=== PATIENT | male | born 1960 | race Caucasian/White ===

== ENCOUNTER 2021-10-19 05:32 | Inpatient (IN) ==
--- NOTE | 2021-10-16 08:39 | Anesthesiology Consultation ---
Date of Service October 16, 2021 Assessment & Plan (1) Encounter for pre-operative examination: Chart Review Chart Review: Acceptable Risk for Surgery (pending preop Covid testing and DOS labs ) and Patient NOT seen in Pre Admission Testing -No preop labs ordered- will order CBC with diff, PPR, and coags for DOS. Per 07/05/21 anesthesia consultation- patient refuses nasal Covid testing- willing to do oral Covid swabs- pending preop Covid testing negative- will order oropharyngeal Covid Harper test for DOS as patient is requiring admission post operatively. Order placed. Will make OR and PAT chart check aware. -Pt initially scheduled 10/01/21 for surgery- rescheduled due to upper respiratory symptoms (see below)- pt is feeling better. Per nursing assessment 10/15/21, patient denies any recent travel. Pt had recent cough and sore throat (started beginning of September 2021)- treated with antibiotic and steroid (finished abx on 10/14/21). Symptoms have since resolved with exception to mild voice hoarseness- patient feels well. No known Covid positive contacts. No known Covid infection in the past 90 days. Pt is NOT vaccinated for Covid. Preop Covid testing scheduled 10/16/21= will await results. Pt seen by PCP 07/09/21= seen for preop clearance for neck surgery. Had preop labs that looked good. "He is medically cleared for proposed surgery." Follow up in six months History Surgery Operation Date: 10/18/21 10:35 Proposed Procedures p C5-C6 Anterior Cervical Discectomy and Fusion Spinal Cord Monitoring - Vernon Butler DO Height/Weight Height: 5 ft 8 in Weight: 86.183 kg Allergies Allergy/AdvReac Type Severity Reaction Status Date / Time PAIN MEDICTION Allergy Severe BLISTERS Uncoded 10/15/21 16:32 CAUSING SEPSIS Medications Home Medications Medication Instructions Recorded Confirmed Last Taken gabapentin 100 mg capsule 100 mg PO HS 07/04/21 10/15/21 Unknown meloxicam 15 mg tablet 15 mg PO HS 07/04/21 10/15/21 Unknown mv-min-vit C-ascorb 1 tab PO QAM 07/04/21 10/15/21 Unknown Qx-Lqk-Yyu-herb #124 333 mg-1.7 mg chewable tablet (Airborne (ascorbate sodium)) Past Medical History Medical History (Updated 10/16/21 @ 08:35 by Ayse Pelayo PA-C) Arthritis Endocarditis Yrs ago, d/t dental infection, s/p total teeth extraction GERD (gastroesophageal reflux disease) Diet dependent Herniated disc, cervical History of hypertension Controlled, stable per pt Hx of cardiac murmur With endocarditis, reports resolution after treatment, no murmur detected per 06/2021 PCP note in [facility] Inguinal hernia LEFT SIDE, monitoring by PCP per pt Peripheral neuropathy Past Family History Family History Mother Family history of diabetes mellitus Sister Family history of diabetes mellitus Brother Family history of diabetes mellitus Other Deep vein thrombosis Diabetes Heart disease No family history of adverse response to anesthesia Stroke Past Surgical History Surgical History History of colonoscopy History of tooth extraction Hx of inguinal hernia surgery RT Social History Smoking Status: Current every day smoker tobacco type: cigarettes Smoking cigarettes per day: 20 CIG DAILY *ADVISED Do You Dip or Chew Tobacco: No Hx Alcohol Use: Yes Alcohol type: beer alcohol intake frequency: a few times a month Hx Substance Use: No substance use type: does not use Testing Electrocardiogram Date: 07/05/21 Normal sinus rhythm, rate 67 bpm. RBBB. Chest X-Ray Date: 07/05/21 FINDINGS: No lines and tubes are seen. The cardiomediastinal silhouette is normal. Trace atelectasis at the left lung base. No evidence of pleural effusion or pneumothorax. IMPRESSION: No acute chest disease.
[~2021-10-19 05:32] MED LIST: ACETAMINOPHEN 500 MG TAB PO SCH; CeleBREX 200 MG CAP PO SCH; GABAPENTIN 600 MG DOSE PO SCH; LR 15ML/HR IV SCH; ceFAZolin 2000MG 2,000 MG/15 ML SYR IV SCH
[2021-10-19] MEDS ORDERED: PROPOFOL IV EMULSION 10 MG/ML 100 ML VIAL IV ONE (07:01)
[2021-10-19 07:06] LABS: Basophils # (auto) 0.03 K/uL (0-0.2); Basophils % (auto) 0.3 %; Eosinophils # (auto) 0.32 K/uL (0-0.5); Eosinophils % (auto) 3.4 %; Hemoglobin 14.9 g/dL (14.0-18.0); Immature Granulocytes # (auto) 0.02 K/uL (0.00-0.02); Immature Granulocytes % (auto) 0.2 %; Lymphocytes # (auto) 2.18 K/uL (1.2-3.4); Lymphocytes % (auto) 23.2 %; Mean Corpuscular Hemoglobin 31.3 pg (25-34); Mean Corpuscular Volume 90.3 fL (80-100); Mean Platelet Volume 8.5 fL (7.4-10.4); Monocytes # (auto) 0.89 K/uL (0.11-0.59); Monocytes % (auto) 9.5 %; Neutrophils # (auto) 5.95 K/uL (1.4-6.5); Neutrophils % (auto) 63.4 %; Platelet Count 277 K/uL (130-400); RDW Coefficient of Variation 12.9 % (11.5-14.5); RDW Standard Deviation 42.9 fL (36.4-46.3); Red Blood Count 4.76 M/uL (4.7-6.1); White Blood Count 9.39 K/uL (4.8-10.8)
[2021-10-19] MEDS ORDERED: NEOSTIGMINE METHYLSULFATE 1 MG/ML 10ML VIAL ONE ×2 (07:08→09:13)
[2021-10-19] MEDS ORDERED: GLYCOPYRROLATE 0.2 MG/ML VIAL ONE ×2 (07:08→09:13)
[2021-10-19] MEDS ORDERED: PROPOFOL IV EMULSION 10 MG/ML 20 ML VIAL IV ONE (07:08)
[2021-10-19] MEDS ORDERED: fentaNYL citrate 100 MCG/2 ML VIAL ONE (07:08)
[2021-10-19] MEDS ORDERED: LIDOCAINE 2% 2 ML VIAL/AMP(20MG/ML) INFIL ONE ×2 (07:08→09:45)
[2021-10-19] MEDS ORDERED: DEXAMETHASONE SOD INJ 4 MG/ML VIAL ONE (07:08)
[2021-10-19] MEDS ORDERED: MIDAZOLAM HCL 1 MG/ML 2ML VIAL ONE (07:08)
[2021-10-19] MEDS ORDERED: ONDANSETRON INJ 2 MG/ML 2 ML VIAL ONE ×2 (07:08→09:17)
[2021-10-19] MEDS ORDERED: ceFAZolin 330 MG/ML 1 GM VIAL ONE (07:09)
[2021-10-19] MEDS ORDERED: ceFAZolin 2,000 MG/15 ML IV PUSH IV ONE (07:11)
[2021-10-19] MEDS ORDERED: GABAPENTIN 300 MG CAP ONE (07:12)
[2021-10-19] MEDS ORDERED: CeleBREX 200 MG CAP ONE (07:12)
[2021-10-19] MEDS ORDERED: ACETAMINOPHEN 500 MG TAB ONE (07:12)
[2021-10-19] MEDS ORDERED: ALBUT/IPRATROP 3MG/0.5MG NEB 3 ML VIAL NEB STA (07:13)
[2021-10-19 07:22] LABS: BUN Creatinine Ratio 15.8 (10-20); Calcium 8.8 mg/dl (8.5-10.1); Creatinine Clr Calc Pharmacy 82.7 ml/min; Est GFR (African American) 93.9 ml/min; Mean Corpuscular Hgb Conc 34.7 g/dL (32-36); Potassium 4.2 mmol/L (3.5-5.1)
--- NOTE | 2021-10-19 07:26 | History & Physical Report ---
Date of Service October 19, 2021 Assessment & Plan (1) Cervical radiculitis: Plan: C4-C6 anterior cervical discectomy and fusion History of Present Illness Chief Complaint: Neck and arm pain Primary Care Provider: Zaheer Montano MD This is a 61-year-old male presents with chronic persistent neck and arm pain after failed course of nonoperative care is here for surgical invention. Allergies Allergy/AdvReac Type Severity Reaction Status Date / Time PAIN MEDICTION Allergy Severe BLISTERS Uncoded 10/19/21 06:31 CAUSING SEPSIS Home Medications Medication Instructions Recorded Confirmed Type gabapentin 100 mg capsule 100 mg PO HS 07/04/21 10/19/21 History meloxicam 15 mg tablet 15 mg PO HS 07/04/21 10/19/21 History mv-min-vit C-ascorb 1 tab PO QAM 07/04/21 10/19/21 History Og-Raq-Lzh-herb #124 333 mg-1.7 mg chewable tablet (Airborne (ascorbate sodium)) Past Med/Surg History Medical History (Updated 10/16/21 @ 08:35 by Ayse Pelayo PA-C) Arthritis Endocarditis Yrs ago, d/t dental infection, s/p total teeth extraction GERD (gastroesophageal reflux disease) Diet dependent Herniated disc, cervical History of hypertension Controlled, stable per pt Hx of cardiac murmur With endocarditis, reports resolution after treatment, no murmur detected per 06/2021 PCP note in [facility] Inguinal hernia LEFT SIDE, monitoring by PCP per pt Peripheral neuropathy Surgical History History of colonoscopy History of tooth extraction Hx of inguinal hernia surgery RT Family History Mother Family history of diabetes mellitus Sister Family history of diabetes mellitus Brother Family history of diabetes mellitus Other Deep vein thrombosis Diabetes Heart disease No family history of adverse response to anesthesia Stroke Social History Smoking Status: Current every day smoker Cigarettes Per Day: 20 CIG DAILY *ADVISED; Second Hand Exposure: No; Do You Dip or Chew Tobacco: No; Tobacco Cessation Education Requested by Patient: No Hx Alcohol Use: Yes Alcohol type: beer Hx Substance Use: No Preferred Language: Kazakh Communication Ability: Effective Pelletizer Operator Required: No Beliefs That Will Affect Care: None Current Living Situation: Significant Other Other Information That Helps Us Care for You: No Feels Safe at Home: Yes Safety Concerns: Feels Safe At This Time Assistive Devices: Denture - Upper and Denture - Lower Physical Exam Physical Exam: Patient is alert and oriented Heart regular rhythm Lungs clear Results & Data ([facility]) Vital Signs (Past 12 Hours) Vital Signs Temp Pulse Resp BP Pulse Ox 10/19/21 06:35 36.7 C 72 18 171/91 H 98
--- NOTE | 2021-10-19 07:26 | History & Physical Bridge Note ---
Date of Service October 19, 2021 History & Physical Bridge Note I have examined the patient, reviewed the History & Physical and in the interval since the performance of the History & Physical I have noted the following changes of clinical significance: no changes noted
[2021-10-19 07:31] LABS: Partial Thromboplastin Time 27.7 Seconds (21.0-31.0)
[2021-10-19] MEDS ORDERED: ONDANSETRON INJ 2 MG/ML 2 ML VIAL IV PRN ×2 (07:34→12:48)
[2021-10-19] MEDS ORDERED: HYDROmorphone INJ 1 MG/ML SYRINGE IV PRN ×2 (07:34→12:48)
[2021-10-19] MEDS ORDERED: ePHEDrine sulfate 50 MG/ML AMP IV PRN (07:34)
[2021-10-19] MEDS ORDERED: ATROPINE SULFATE 0.1 MG/ML 10ML SYR IV PRN (07:34)
[2021-10-19] MEDS ORDERED: ROCURONIUM BROMIDE 10 MG/ML 5 ML VIAL IV ONE (08:29)
[2021-10-19] MEDS ORDERED: SUCCINYLCHOLINE CHLORIDE 20 MG/ML 10 ML VIAL IV ONE (08:29)
[2021-10-19] MEDS ORDERED: FLOSEAL HEMOSTATIC MATRIX 10ML TOP ONE (08:35)
[2021-10-19] MEDS ORDERED: PHENYLEPHRINE HCL 10 MG/ML VIAL ONE (08:45)
--- NOTE | 2021-10-19 09:23 | Operative Report ---
Post Operative Report Pre & Post Diagnosis Operation Date: 10/19/21 07:45 Pre-Op Diagnosis: Cervical Radiculitis Post-Op Diagnosis: Cervical Radiculitis I identified the patient and participated in the time-out.: Yes Procedure Operation Date: 10/19/21 07:45 Actual Procedures #1 anterior shoulder discectomy with bilateral foraminotomies C4-5 C5-6. #2 intracervical arthrodesis C4-C5 C5-C6. #3 placement of 7 mm spiral cage filled with I factor at C4-C5 C5-C6. #4 application of castillo plate and screws from C4-C6. Surgeon Vernon Butler, DO Barge Captain Israel Peña Estimated Blood Loss 10 Findings Consistent with Post-Op Diagnosis Specimens None Indications This is a 61-year-old male who presents with significant cervical radiculopathy after an incident at work. After failing course of nonoperative care is here for the above-mentioned procedure. Description of Procedure Patient was met with identified informed consent obtained. Patient was then taken to the operative suite placed on the [place] table head Solomon head of ict. All bony prominences well-padded eyes inspected to ensure no external pressure placed upon them. At this point the anterior cervical spine was prepped and draped no sterile fashion. The assistance of fluoroscopy identified the C5 vertebral body and a transverse incision was placed along the right anterior aspect of the cervical spine overlying this region. Blunt dissection with assistance of bipolar electrocautery was then performed down to and exposing the anterior cervical spine from CT 4 to C6. A self-retaining retractors placed. Informed complete discectomy of C4-C5 out to the uncovertebral joints bilaterally. [place] distracting pins were utilized to assist in visualization. Removed all posterior annular fibers longitudinal ligament bilateral foraminotomies performed. Endplates burred to subcortical being bone and 7 mm spiral cage filled with I factor tapped in position. Then proceeded to see 5 C6. Again complete discectomy performed out to the uncovertebral joints bilaterally. [place] distracting pins again utilized. Removed all posterior fibers longitudinal ligament bilateral foraminotomies performed. Endplates burred to subcortical bleeding bone and a 7 mm spiral cage filled with I factor tapped in position. All anterior osteophytes were then burred to smooth cortical surface and a 5 complete and screws applied with the assistance of fluoroscopy. The incision was then copiously irrigated explored to ensure no demonstrate surrounding structures remaining bleeding. 10 round MANSOOR drain inserted. The incision was then closed with 2 Vicryl in the fashion of 4 Monocryl for final skin closure. Steri-Strip sterile dressings placed. Patient waken taken back in stable condition. Please note spinal cord monitoring was utilized at the procedure no changes noted. Lastly Israel Peña was present at the entire surgery involved in patient positioning complex portions of the surgery and final skin closure. I attest to the content of the Intraoperative Record and any orders documented therein. Any exceptions are noted below.
[2021-10-19] MEDS ORDERED: ALBUTEROL HFA INHALER 8.5 GM ONE (09:47)
--- NOTE | 2021-10-19 09:47 | Fluoroscopy Report ---
FL cervical 2-3V HISTORY: 61 years-old Male C4-C6 ACDF chronic neck pain COMPARISON: Cervical spine radiographs 07/19/2020 TECHNIQUE: 2 spot fluoroscopic images of the cervical spine were obtained utilizing 8.9 seconds fluor oscopy time FINDINGS: A surgical sponge projects over the anterior soft tissues. Anterior plate and screw fusion with disce ctomy noted at C4-C6. Alignment appears satisfactory. The hardware appears intact. An endotracheal tu be is present. IMPRESSION: Fluoroscopic assistance as above. ACT 112: Negative or not required by law. The above report was generated using voice recognition software. It may contain grammatical, syntax o r spelling errors. Electronically signed by: Colin Peace M.D. 10/19/2021 9:45 AM
[2021-10-19] MEDS: fentaNYL citrate 100 MCG/2 ML VIAL IV PRN ×4 (09:55→12:18)
[2021-10-19] MEDS ORDERED: hydrALAZINE HCL 20 MG/ML VIAL IV STA (10:54)
[2021-10-19] MEDS ORDERED: hydrALAZINE HCL 20 MG/ML VIAL ONE (10:55)
--- NOTE | 2021-10-19 12:37 | Anesthesiology Progress Note ---
Date of Service October 19, 2021 Anesthesia Post Procedure Vital Signs Vital Signs: Temp Pulse Pulse Resp BP Pulse Ox 10/19/21 12:30 83 15 157/88 H 94 10/19/21 12:10 87 19 169/85 H 94 10/19/21 11:55 93 H 19 157/80 H 95 10/19/21 11:40 91 H 24 159/83 H 94 10/19/21 11:25 89 12 167/87 H 94 10/19/21 11:15 36.6 C 76 12 154/86 H 95 10/19/21 11:05 76 12 152/87 H 95 10/19/21 11:00 69 16 168/93 H 95 10/19/21 10:50 74 16 170/93 H 95 10/19/21 10:40 74 16 157/107 H 98 10/19/21 10:30 75 18 161/95 H 98 10/19/21 10:20 73 12 174/91 H 96 10/19/21 10:10 66 12 164/93 H 94 10/19/21 10:00 67 20 169/90 H 95 10/19/21 09:50 65 20 166/85 H 99 10/19/21 09:40 36.1 C L 72 16 153/88 H 99 10/19/21 07:46 65 14 95 10/19/21 06:35 36.7 C 72 18 171/91 H 98 Pain Intensity Neck: Pain Intensity: 2 Transfer of Care Handoff Completed per policy Notes Mental Status: alert / awake / arousable and participated in evaluation Patient Amnestic to Procedure: Yes Nausea / Vomiting: adequately controlled Pain: adequately controlled Airway Patency, RR, SpO2: stable & adequate BP & HR: stable & adequate Hydration State: stable & adequate Anesthetic Complications: no major complications apparent and Pt Satisfied with anesthetic care
[2021-10-19] MEDS ORDERED: FAMOTIDINE 20 MG TAB PO PRN (12:48)
[2021-10-19] MEDS ORDERED: ONDANSETRON 4 MG OD TAB PO PRN (12:48)
[2021-10-19] MEDS ORDERED: HYDROmorphone INJ 0.5 MG/0.5 ML SYR IV PRN (12:48)
[2021-10-19] MEDS ORDERED: DO NOT ADMINISTER FLU VACCINE PRN (12:48)
[2021-10-19] MEDS ORDERED: DO NOT ADMINISTER PNEUMOCOCCAL VACCINE PRN (12:48)
[2021-10-19] MEDS ORDERED: SOD PHOSPHATE/SOD BIPHOSPHATE ENEMA 132 ML BTL PR PRN (12:48)
[2021-10-19] MEDS ORDERED: METOCLOPRAMIDE HCL INJ 5 MG/ML 2 ML VIAL IV PRN (12:48)
[2021-10-19] MEDS ORDERED: hydrOXYzine HCl 25 MG TAB PO PRN (12:48)
[2021-10-19] MEDS ORDERED: dexAMETHasone 8 MG in SYRINGE 0 ML IV PRN (12:48)
[2021-10-19] MEDS ORDERED: LORazepam 2 MG/1 ML VIAL IV PRN (12:48)
[2021-10-19] MEDS ORDERED: RACEPINEPHRINE 2.25% NEBU SOLN 0.5 ML VIAL INH PRN (12:48)
[2021-10-19] MEDS ORDERED: traMADol HCL 50 MG TABLET PO PRN (12:48)
[2021-10-19] MEDS ORDERED: ALUMINUM/MAGNESIUM SUSP 30 ML UDC PO PRN (12:48)
[2021-10-19] MEDS ORDERED: bisacodyL 10 MG SUPP PR PRN (12:48)
[2021-10-19] MEDS ORDERED: ACETAMINOPHEN 500 MG TAB PO PRN (12:48)
[2021-10-19] MEDS ORDERED: ACETAMINOPHEN 1,000 MG/100 ML VIAL IV PRN (12:48)
[2021-10-19] MEDS ORDERED: LORazepam 0.5 MG TAB PO PRN (12:48)
[2021-10-19] MEDS ORDERED: MAGNESIUM HYDROXIDE SUSP 30 ML UDC PO PRN (12:48)
[2021-10-19] MEDS ORDERED: NALOXONE HCL 0.4 MG/1 ML VIAL/CARP IV PRN (12:48)
[2021-10-19] MEDS ORDERED: diphenhydrAMINE Capsule 25 MG CAP PO PRN (12:48)
[2021-10-19] MEDS ORDERED: PROMETHAZINE HCL 12.5 MG in SODIUM CHLORIDE 0.9% 50 ML IV PRN (12:48)
--- NOTE | 2021-10-19 13:29 | Consultation ---
Date of Consultation October 19, 2021 Assessment & Plan (1) Cervical radiculopathy: (2) Status post cervical spinal fusion: Post op day# 0 S/P ACDF C4-C6 by Dr Butler EB#10ml -pain management per ortho -wound management per ortho -PT/OT as appropriate -DVT prophylaxis per ortho -incentive spirometry -monitor H&H for acute blood loss anemia; pre-op Hgb: 14.9 (3) Tobacco use: -Denies nicotine patch -Smoking cessation recommended DVT Prophylaxis -SCDs Disposition per primary service Follows with Dr Montano for routine care Pt was seen and care coordinated with Dr Durbin. See addendum Thank you for this consultation. We will follow the patient with you during their hospital stay. You can reach a member of the [facility] Hospitalist Team 20/01 via [facility] Supervising Physician Co-Signing Physician Notes I have seen and examined the patient and have discussed the case with the provider above. I agree with the assessment and plan as stated with the fol lowing exceptions. Mr Hannon is feeling well post-operatively denying pain and reporting an improvement in sensation deficits especially in his left arm. He is oriented and denies any SOB. He was able to eat some dinner. 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 He is resting well in [place] hard collar with drain in anterior neck. Bandages are c/d/i. He verbalizes that he is already pleased with his outcome. Blood pressure was elevated this afternoon but improved with pain medication. DO Ramakrishna History of Present Illness Requesting Physician: Dr Butler Reason for Consultation: Post op medical management Attending Physician: Vernon Butler DO History of Present Illness Patient is 61 y/o M with PMH tobacco use, cervical radiculopathy seen in medical consultation s/p ACDF C4-C6 today by Dr Butler. Post op patient reports is doing well. Denies any current pain. Has chronic left arm paresthesias that he states still feels present, otherwise denies other paresthesias. Is tolerating liquid diet. Denies choking. Denies CP, SOB. Last BM reported yesterday. Reports earlier this month had a cough and had negative COVID-19 and influenza testing per outpatient chart review. Reports cough has pretty much resolved after taking z-pack and prednisone. Denies fever/chills, diaphoresis, N/V/D/C, THOMPSON, dizziness, syncope, vision changes, palpitations, cough, sore throat, choking, otalgia, rhinorrhea, abdominal pain, extremity weakness, extremity edema, rashes, urinary symptoms. Allergies Allergy/AdvReac Type Severity Reaction Status Date / Time No Known Allergies Allergy Unverified 10/19/21 13:21 Home Medications Medication Instructions Recorded Confirmed Type gabapentin 100 mg capsule 100 mg PO HS 07/04/21 10/19/21 History meloxicam 15 mg tablet 15 mg PO HS 07/04/21 10/19/21 History mv-min-vit C-ascorb 1 tab PO QAM 07/04/21 10/19/21 History Ap-Apa-Czw-herb #124 333 mg-1.7 mg chewable tablet (Airborne (ascorbate sodium)) oxycodone 5 mg tablet 5 mg PO Q6H PRN #20 tab 10/19/21 Rx tramadol 50 mg tablet 50 mg PO Q6H PRN #30 tab 10/19/21 Rx Patient History Medical History Arthritis Endocarditis Yrs ago, d/t dental infection, s/p total teeth extraction GERD (gastroesophageal reflux disease) Diet dependent Herniated disc, cervical History of hypertension Controlled, stable per pt Hx of cardiac murmur With endocarditis, reports resolution after treatment, no murmur detected per 06/2021 PCP note in [facility] Inguinal hernia LEFT SIDE, monitoring by PCP per pt Peripheral neuropathy Surgical History History of colonoscopy History of tooth extraction Hx of inguinal hernia surgery RT Family History Mother Family history of diabetes mellitus Sister Family history of diabetes mellitus Brother Family history of diabetes mellitus Other Deep vein thrombosis Diabetes Heart disease No family history of adverse response to anesthesia Stroke Social History Smoking Status: Current every day smoker Cigarettes Per Day: 20 CIG DAILY *ADVISED; Second Hand Exposure: No; Do You Dip or Chew Tobacco: No; Tobacco Cessation Education Requested by Patient: No Hx Alcohol Use: Yes Alcohol type: beer Hx Substance Use: No Preferred Language: Sri Lankan Communication Ability: Effective Curtain Stitcher Required: No Beliefs That Will Affect Care: None Current Living Situation: Significant Other Other Information That Helps Us Care for You: No Feels Safe at Home: Yes Safety Concerns: Feels Safe At This Time Assistive Devices: None Review of Systems Review of Systems: All systems reviewed & are unremarkable except as noted in HPI & below Physical Exam Physical Exam: General: no distress, WDWN Head: normocephalic, atraumatic Eyes: conjunctiva non-injected, anicteric ENT: normal inspection external ears, nose, mucous membranes moist Neck: C-collar in place, anterior neck with surgical dressing in place and dry, +MANSOOR drain with slight amount of serosanguineous drainage Lungs: clear, no respiratory distress, no wheezing/rhonchi/rales CV: RRR, no murmur, no pretibial edema Abd: normal BS, soft, non-tender Ext: no cyanosis, no calf tenderness; bilateral area director of home health sales strength equal, bilateral pedal pushes and pulls intact, distal pulses intact, sensation to light touch intact Neuro: A&O x 3, no focal deficits noted, normal affect Skin: warm, dry Results & Data ([facility]) Vital Signs (Past 12 Hours) Vital Signs Temp Pulse Pulse Resp BP Pulse Ox 10/19/21 13:13 86 18 159/82 H 94 10/19/21 13:02 92 H 18 92 10/19/21 12:40 36.7 C 86 18 164/89 H 94 10/19/21 12:30 83 15 157/88 H 94 10/19/21 12:10 87 19 169/85 H 94 10/19/21 11:55 93 H 19 157/80 H 95 10/19/21 11:40 91 H 24 159/83 H 94 10/19/21 11:25 89 12 167/87 H 94 10/19/21 11:15 36.6 C 76 12 154/86 H 95 10/19/21 11:05 76 12 152/87 H 95 10/19/21 11:00 69 16 168/93 H 95 10/19/21 10:50 74 16 170/93 H 95 10/19/21 10:40 74 16 157/107 H 98 10/19/21 10:30 75 18 161/95 H 98 10/19/21 10:20 73 12 174/91 H 96 10/19/21 10:10 66 12 164/93 H 94 10/19/21 10:00 67 20 169/90 H 95 10/19/21 09:50 65 20 166/85 H 99 10/19/21 09:40 36.1 C L 72 16 153/88 H 99 10/19/21 07:46 65 14 95 10/19/21 06:35 36.7 C 72 18 171/91 H 98 Laboratory Results Short CBC 10/19/21 Range/Units 06:41 WBC 9.39 (4.8-10.8) K/uL Hgb 14.9 (14.0-18.0) g/dL Hct 43.0 (42-52) % Plt Count 277 (130-400) K/uL BMP 10/19/21 06:41 Sodium 139 Potassium 4.2 Chloride 105 Carbon Dioxide 30 BUN 16 Creatinine 1.01 Glucose 90 Calcium 8.8
[2021-10-19] MEDS: LACTATED RINGER'S 1,000 ML IV SCH ×2 (13:44→23:45)
[2021-10-19] MEDS: ceFAZolin 2000MG 2,000 MG/15 ML SYR IV SCH ×2 (15:45→23:45)
[2021-10-19] MEDS: dexAMETHasone 8 MG in SYRINGE 0 ML IV SCH ×2 (15:45→23:45)
[2021-10-19] MEDS ORDERED: amLODIPine BESYLATE 5 MG TAB PO ONE (20:32)
[2021-10-19] MEDS ORDERED: GABAPENTIN 100 MG CAP PO SCH (21:00)
[2021-10-19] MEDS ORDERED: DOCUSATE SODIUM/SENNA 50/8.6MG TAB PO SCH (21:00)
[2021-10-19] MEDS: oxyCODONE HCL IR 5 MG TAB (IMMEDIATE RELEASE) PO PRN (21:36)
[2021-10-20] MEDS: oxyCODONE HCL IR 5 MG TAB (IMMEDIATE RELEASE) PO PRN ×2 (02:51→08:18)
[2021-10-20] MEDS ORDERED: POLYETHYLENE (MIRALAX) 17 GM PACK PO SCH (06:00)
[2021-10-20 06:24] LABS: BUN Creatinine Ratio 11.6 (10-20); Calcium 8.9 mg/dl (8.5-10.1); Creatinine Clr Calc Pharmacy 97.1 ml/min; Est GFR (Non-African American) 94.9 ml/min; Potassium 4.3 mmol/L (3.5-5.1)
[2021-10-20 06:34] LABS: Hematocrit (blood only) 43.2 % (42-52); Hemoglobin 14.7 g/dL (14.0-18.0); Mean Corpuscular Hemoglobin 31.3 pg (25-34); Mean Corpuscular Volume 92.1 fL (80-100); Mean Platelet Volume 8.6 fL (7.4-10.4); Platelet Count 325 K/uL (130-400); RDW Coefficient of Variation 12.9 % (11.5-14.5); RDW Standard Deviation 43.6 fL (36.4-46.3); Red Blood Count 4.69 M/uL (4.7-6.1); White Blood Count 19.88 K/uL (4.8-10.8)
--- NOTE | 2021-10-20 08:08 | Discharge Summary ---
Date of Service October 20, 2021 Admission HPI Per Admitting Provider This is a 61-year-old male presents with chronic persistent neck and arm pain after failed course of nonoperative care is here for surgical invention. Discharge Data Consultations 10/19/21 12:48 Consult Hospitalist Routine Procedures Performed Operation Date: 10/19/21 07:45 Actual Procedures p C4-C6 Anterior Cervical Discectomy and Fusion, Spinal Cord Monitoring(Not Applicable) - Vernon Butler DO Hospital Course (1) Cervical radiculitis: Patient is a 61-year-old male with history physical examination review of images consistent with the above-mentioned diagnosis. For this reason is brought to the operating room on 10/19/2021 and undergone anterior cervical discectomy and fusion at C4-5 and C5-6. This performed by Dr. Butler under general anesthesia. Left the operating room with a MANSOOR drain in place as transferred PACU in stable condition. In PACU he had significant left-sided radicular complaints which have since subsided. He was transferred to the orthopedic floor in stable condition. His pain is well controlled. He did well overnight. And on postop day 1 he was deemed safe for home discharge. He is to lift nothing heavier than 5 to 7 pounds. He needs to keep his collar in place and may remove it for skin care as well as meals. He is to change dressing once daily until there is no drainage once there is no drainage he may begin sh owering. He is to avoid driving until he sees us for his 2-week postop visit. He is to call if he has any increased pain fevers, chills, or drainage from the incision.
[2021-10-20] MEDS: dexAMETHasone 8 MG in SYRINGE 0 ML IV SCH (08:19)
[2021-10-20] MEDS ORDERED: CEROVITE ADV FORMULA TAB PO SCH (09:00)
[2021-10-20] MEDS ORDERED: dexAMETHasone 6 MG in SYRINGE 0 ML IV SCH (09:00)
[2021-10-20] MEDS: LACTATED RINGER'S 1,000 ML IV SCH ×2 (09:50→09:51)
--- NOTE | 2021-10-20 14:38 | Hospitalist Progress Note ---
Date of Service October 20, 2021 Assessment & Plan (1) Cervical radiculopathy: (2) Status post cervical spinal fusion: Plan: Post op day# 1 S/P ACDF C4-C6 by Dr Butler EB#10ml -pain management per ortho -wound management per ortho -PT/OT as appropriate -DVT prophylaxis per ortho -incentive spirometr -expect BP to go down with pain management. -Hb remained stable. (3) Tobacco use: Plan: -Denies nicotine patch -Smoking cessation recommended DVT Prophylaxis -SCDs Disposition per primary service Follows with Dr Montano for routine care Thank you for this consultation. We will follow the patient with you during their hospital stay. You can reach a member of the [facility] Hospitalist Team 20/01 via [employer] Admission and Anticipated Discharge Date Admission Date: October 19, 2021 Subjective Patient seen and examined at bedside for follow-up of S/P ACDF C4-C6 by Dr Butler on 10/19. Patient was lying in bed, on room air, NAD, no new acute events overnight. Patient reports pain under control. Patient reports eating okay and moving bowels okay. Patient denies any fever/headache/chills/chest pain/palpitation/other review of symptoms. Physical Exam Physical Exam: GENERAL: Alert and oriented x3. NAD, on RA. HEENT: No pallor, no icterus. Pupils equal, round and reactive to light. Oral mucosa moist. NECK: No JVD, no neck masses. Cervical collar noted. HEART: S1 and S2 heard. Regular rate and rhythm. No murmur, no gallop. RESPIRATORY SYSTEM: Normal AP diameter. No accessory muscle use. No wheezing, no crackles. ABDOMEN: Soft, bowel sounds present, nontender, no distention. CENTRAL NERVOUS SYSTEM: No facial droop. Speech is clear. Obeys simple commands. Moves extremities. EXTREMITIES: No edema, no erythema seen. Results & Data Results & Data ([facility]) Vital Signs (Past 12 Hours) Vital Signs Temp Pulse Resp BP BP Pulse Ox 10/20/21 08:57 36.6 C 91 H 16 175/96 H 169/90 H 92 10/20/21 07:40 36.6 C 91 H 16 175/96 H 92 10/20/21 07:00 81 20 94 10/20/21 06:06 36.5 C 86 18 169/90 H 92 10/20/21 03:56 36.5 C 85 16 176/97 H 93 10/20/21 02:36 90 18 94
== END 2021-10-20 11:24 | disposition home or self-care (01) | DRG 30 ==
LOC: ASU 05:32 → 3E 09:25